=== PATIENT | female | born 1955 | race Caucasian/White ===

== ENCOUNTER 2017-03-23 17:12 | Emergency (ER) | payer SELFPAY ==
[2017-03-23] MEDS ORDERED: TRAMADOL HCL 50 MG TABLET ONE (17:28)
[2017-03-23] MEDS ORDERED: CEFTRIAXONE SODIUM 1 GM ONE (17:28)
[2017-03-23] MEDS ORDERED: LIDOCAINE HCL 1% 20 ML VIAL ONE (17:28)
== END 2017-03-23 17:49 | disposition home or self-care (01) ==
LOC: EDH 17:12
DX: H66.41 Suppurative otitis media, unspecified, right ear (principal); J45.909 Unspecified asthma, uncomplicated; I10 Essential (primary) hypertension; Z72.0 Tobacco use; Z88.6 Allergy status to analgesic agent
CPT/HCPCS: 96372; 99283; J0696

== ENCOUNTER 2019-05-06 18:15 | Emergency (ER) | payer OTHER ==
[2019-05-06] MEDS ORDERED: IPRATROPIUM/ALBUTEROL SULFATE 3 ML SOLUTION IH ONE (18:40)
[2019-05-06] MEDS ORDERED: METHYLPREDNISOLONE SOD SUCC 125MG/2ML VIAL ONE (18:41)
[2019-05-06] MEDS ORDERED: ACETAMINOPHEN 325 MG TAB ONE (18:41)
== END 2019-05-06 20:23 | disposition home or self-care (01) ==
LOC: EDH 18:15
DX: J10.1 Influenza due to other identified influenza virus with other respiratory manifestations (principal); J20.9 Acute bronchitis, unspecified; J90 Pleural effusion, not elsewhere classified; J45.909 Unspecified asthma, uncomplicated; I10 Essential (primary) hypertension; Z72.0 Tobacco use; Z88.6 Allergy status to analgesic agent
CPT/HCPCS: 71046; 87804 ×2; 94640; 96372; 99284; J2930